=== PATIENT | female | born 1985 | race Caucasian/White ===

== ENCOUNTER 2017-07-10 08:56 | Emergency (ER) | payer MEDICAID ==
[~2017-07-10] VITALS: Ht 160 cm; Wt 73.5 kg
[2017-07-10 08:58] VITALS: Ht 160 cm; Wt 73.5 kg
[2017-07-10 10:21] LABS: BASOPHILS % 0.3 % (0.0-2.0); EOSINOPHILS # 0.1 10^3/ul (0.0-0.5); EOSINOPHILS % 0.5 % (0.0-7.0); HEMATOCRIT 39.3 % (37.0-47.0); HEMOGLOBIN 13.3 g/dl (12.0-16.0); LYMPHOCYTES % 21.2 % (15.0-51.0); MEAN CORPUSCULAR HEMOGLOBIN 29.6 pg (29.0-33.0); MEAN CORPUSCULAR HGB CONC 33.8 g/dl (32.0-37.0); MEAN CORPUSCULAR VOLUME 87.5 fl (82.0-101.0); MONOCYTE # 0.6 10^3/ul (0.3-0.9); NEUTROPHIL # 6.8 10^3/ul (1.6-7.5); NEUTROPHILS % 71.7 % (39.0-77.0); PLATELET COUNT 258 10^3/UL (140-415); RED BLOOD COUNT 4.49 10^6/ul (4.20-5.40); RED CELL DISTRIBUTION WIDTH 13.3 % (11.5-14.5); WHITE BLOOD COUNT 9.5 10^3/ul (4.8-10.8)
[2017-07-10 10:22] LABS: ADD UMIC NO; UR ASCORBIC ACID NEGATIVE (NEGATIVE); UR BILIRUBIN (Dip) NEGATIVE (NEGATIVE); UR BLOOD (Dip) NEGATIVE (NEGATIVE); UR CLARITY CLEAR (CLEAR); UR COLOR YELLOW (YELLOW); UR GLUCOSE (Dip) NEGATIVE (NEGATIVE); UR KETONES (Dip) NEGATIVE (NEGATIVE); UR LEUKOCYTE ESTERASE (Dip) NEGATIVE Leu/ul (NEGATIVE); UR NITRITE (Dip) NEGATIVE (NEGATIVE); UR SPECIFIC GRAVITY (Dip) 1.013 (1.003-1.030); UR TOTAL PROTEIN (Dip) NEGATIVE (NEGATIVE); UR UROBILINOGEN (Dip) NEGATIVE (NEGATIVE)
--- NOTE | 2017-07-10 11:00 | RADRPT ---
AMENDMENT: 07/10/2017 11:00:54 AM Dada Fink M.D Transabdominal images only were obtained. PROCEDURE: US OB. CLINICAL INDICATION: Vaginal bleeding , pelvic pain TECHNIQUE: Transabdominal and transvaginal views of the pelvis are available for review. COMPARISON: No prior studies are available for comparison. FINDINGS: There is a single intrauterine gestation with the crown-rump length measuring 4.4 cm and the gestati onal sac measuring 5.2 cm, corresponding to a gestational age of 11 weeks and 2 days. The heart rate is noted at 163 bpm. Normal Doppler flow is identified in both ovaries. The right ovary measures 2.3 x 1.8 x 1.8 cm. There is a 1.2 cm simple cyst in the right ovary. The left ovary measures 3.0 x 1.4 x 1.5 cm. There is a 1.5 cm hemorrhagic cyst in the left ovary. There is no free fluid. RPTAT: AA IMPRESSION: Single live intrauterine with an estimated gestational age of 11 weeks and 2 days, based o n ultrasound measurements. WES based on ultrasound measurements is 01/27/2018. .Dada Fink MD, MD Date Time Electronically viewed and signed by .Dada Fink MD, on 07/10/2017 11:00 .S/
[2017-07-10] MEDS ORDERED: ACET325T33 PO (11:29)
--- NOTE | 2017-07-10 13:27 | ERD ---
ER Documentation Chief Complaint Date/Time DATE: 07/10/17 TIME: 13:17 Chief Complaint pelvic pain x 3 days (11 weeks ) HPI 31 yr old female complaining of left-sided pelvic pain. Patient is 11 weeks . Last normal menstrual period May 11. A0. Dr. Bradley at [facility]. Denies vaginal bleeding. Denies dysuria. Denies medical problems. Ultrasound at 5 weeks with [facility] and they saw in the uterus. ROS All systems reviewed and are negative except as per history of present illness. Medications Home Meds Active Scripts Acetaminophen* (Tylenol*) 325 Mg Tablet, 1 TAB PO Q6 Y for PAIN AND OR ELEVATED TEMP, #20 TAB Prov:CELESTINO MOON PA-C 07/10/17 PMhx/Soc History of Surgery: No Anesthesia Reaction: No Hx Neurological Disorder: No Hx Respiratory Disorders: No Hx Cardiac Disorders: No Hx Psychiatric Problems: No Hx Miscellaneous Medical Probl: No Hx Alcohol Use: No Hx Substance Use: No Hx Tobacco Use: No Smoking Status: Never smoker Physical Exam Vitals Vital Signs Date Time Temp Pulse Resp B/P Pulse Ox O2 Delivery O2 Flow Rate FiO2 07/10/17 08:58 98.2 80 18 121/68 100 Physical Exam GENERAL: The patient is well-appearing, well-nourished, in no acute distress CHEST: Clear to auscultation bilaterally. There are no rales, wheezes or rhonchi. HEART: Regular rate and rhythm. No murmurs, clicks, rubs or gallops. No S3 or S4. ABDOMEN: Mild tenderness to palpation in lower quadrant. No rebound tenderness. Normoactive bowel sounds. Nondistended. Result Diagram: 07/10/17 1004 Results 24 hrs Laboratory Tests Test 07/10/17 10:04 07/10/17 10:10 White Blood Count 9.510^3/ul Red Blood Count 4.4910^6/ul Hemoglobin 13.3g/dl Hematocrit 39.3% Mean Corpuscular Volume 87.5fl Mean Corpuscular Hemoglobin 29.6pg Mean Corpuscular Hemoglobin Concent 33.8g/dl Red Cell Distribution Width 13.3% Platelet Count 83664^3/UL Mean Platelet Volume 10.0fl Neutrophils % 71.7% Lymphocytes % 21.2% Monocytes % 6.0% Eosinophils % 0.5% Basophils % 0.3% Nucleated Red Blood Cells % 0.0/100WBC Neutrophils # 6.810^3/ul Lymphocytes # 2.010^3/ul Monocytes # 0.610^3/ul Eosinophils # 0.110^3/ul Basophils # 0.010^3/ul Nucleated Red Blood Cells # 0.010^3/ul Beta HCG, Quantitative 62876.0mIU/ml Urine Color YELLOW Urine Clarity CLEAR Urine pH 7.0 Urine Specific Franklin 1.013 Urine Ketones NEGATIVEmg/dL Urine Nitrite NEGATIVEmg/dL Urine Bilirubin NEGATIVEmg/dL Urine Urobilinogen NEGATIVEmg/dL Urine Leukocyte Esterase NEGATIVELeu/ul Urine Hemoglobin NEGATIVEmg/dL Urine Glucose NEGATIVEmg/dL Urine Total Protein NEGATIVEmg/dl Procedures/MDM DIAGNOSTIC IMAGING REPORT Patient: HUSSAIN ADAMES : 1985 Age: 31 Sex: F MR #: [id number] DOS: 07/10/17 0958 Ordering MD: [place] MOON PA-C Location: [facility] Room/Bed: AMENDMENT: 07/10/2017 11:00:54 AM Dada Fink M.D Transabdominal images only were obtained. PROCEDURE: US OB. CLINICAL INDICATION: Vaginal bleeding , pelvic pain TECHNIQUE: Transabdominal and transvaginal views of the pelvis are available for review. COMPARISON: No prior studies are available for comparison. FINDINGS: There is a single intrauterine gestation with the crown-rump length measuring 4.4 cm and the gestational sac measuring 5.2 cm, corresponding to a gestational age of 11 weeks and 2 days. The heart rate is noted at 163 bpm. Normal Doppler flow is identified in both ovaries. The right ovary measures 2.3 x 1.8 x 1.8 cm. There is a 1.2 cm simple cyst in the right ovary. The left ovary measures 3.0 x 1.4 x 1.5 cm. There is a 1.5 cm hemorrhagic cyst in the left ovary. There is no free fluid. RPTAT: AA IMPRESSION: Single live intrauterine with an estimated gestational age of 11 weeks and 2 days, based on ultrasound measurements. WES based on ultrasound measurements is 01/27/2018. MDM: 31-year-old female complaining of the left-sided pelvic pain. I have low suspicion for ectopic as patient's ultrasound is within normal limits. I have low suspicion for urinary tract infection. Patient's urine is within normal limits. Patient is not having vaginal bleeding and Rh+ so no indication for RhoGam. Patient's hemoglobin is stable. Patient is recommended to follow-up with Dr. Bradley to be reevaluated within 1-2 days. Patient is discharged with strict ER precautions. All other questions answered at time of discharge. Patient understood and complied with plan Departure Diagnosis: Primary Impression: Pelvic pain Condition: Stable Patient Instructions: Pelvic Pain In : Unclear (2-3 Trimester) Additional Instructions: FOLLOW UP WITH YOUR PRIMARY CARE PHYSICIAN TOMORROW.Return to this facility if you are not improving as expected. CELESTINO MOON PA-C Jul 10, 2017 13:27
== END 2017-07-10 11:40 | disposition home or self-care (01) ==
LOC: FTE 08:56
DX: O26.891 Other specified pregnancy related conditions, first trimester (principal); R10.2 Pelvic and perineal pain; Z3A.11 11 weeks gestation of pregnancy
CPT/HCPCS: 36415; 76801; 81003; 84702; 85025; 86900; 86901; Z7502

== ENCOUNTER 2017-08-24 12:17 | Emergency (ER) | payer MEDICAID ==
[~2017-08-24] VITALS: Ht 162.6 cm; Wt 75.1 kg
[~2017-08-24 12:17] MED LIST: ACET325T33 PO
[2017-08-24 12:20] VITALS: Ht 162.6 cm; Wt 75.1 kg
[2017-08-24 13:36] LABS: BASOPHILS % 0.4 % (0.0-2.0); EOSINOPHILS % 0.3 % (0.0-7.0); HEMATOCRIT 35.1 % (37.0-47.0); LYMPHOCYTES # 1.5 10^3/ul (0.8-2.9); LYMPHOCYTES % 14.8 % (15.0-51.0); MEAN CORPUSCULAR HEMOGLOBIN 30.2 pg (29.0-33.0); MEAN CORPUSCULAR HGB CONC 34.2 g/dl (32.0-37.0); MEAN CORPUSCULAR VOLUME 88.2 fl (82.0-101.0); MONOCYTE # 0.6 10^3/ul (0.3-0.9); MONOCYTES % 6.3 % (0.0-11.0); NEUTROPHIL # 7.8 10^3/ul (1.6-7.5); NEUTROPHILS % 77.7 % (39.0-77.0); PLATELET COUNT 228 10^3/UL (140-415); RED BLOOD COUNT 3.98 10^6/ul (4.20-5.40); RED CELL DISTRIBUTION WIDTH 12.8 % (11.5-14.5)
[2017-08-24 13:40] LABS: ADD UMIC NO; UR ASCORBIC ACID NEGATIVE (NEGATIVE); UR BILIRUBIN (Dip) NEGATIVE (NEGATIVE); UR BLOOD (Dip) NEGATIVE (NEGATIVE); UR CLARITY CLEAR (CLEAR); UR COLOR YELLOW (YELLOW); UR GLUCOSE (Dip) NEGATIVE (NEGATIVE); UR KETONES (Dip) NEGATIVE (NEGATIVE); UR LEUKOCYTE ESTERASE (Dip) NEGATIVE Leu/ul (NEGATIVE); UR NITRITE (Dip) NEGATIVE (NEGATIVE); UR SPECIFIC GRAVITY (Dip) 1.006 (1.003-1.030); UR TOTAL PROTEIN (Dip) NEGATIVE (NEGATIVE); UR UROBILINOGEN (Dip) NEGATIVE (NEGATIVE)
--- NOTE | 2017-08-24 13:51 | ERD ---
ER Documentation Chief Complaint Chief Complaint Pt with dizziness, nausea and SOB-last night, 17 weeks . (OSMIN ROUSE NP) HPI This is a 32-year-old female presenting to the emergency department for dizziness with headache while since last night. Patient also states she is feeling nauseas with some shortness of breath. States she feels dizzy like the room is spinning. Headache is generalized. Denies this being the worst headache she is ever had. No leg pain or leg swelling. Patient denies vomiting or diarrhea. States she feels nauseous with intermittent shortness of breath. Patient states shortness of breath is worse with lying down. No chest pain, chest pressure or heart palpitations. Patient is a A0. Patient states she is currently 17 weeks . Denies any vaginal bleeding or vaginal discharge. No pelvic pain or abdominal pain. (OSMIN ROUSE NP) ROS All systems reviewed and are negative except as per history of present illness. (OSMIN ROUSE NP) Medications Home Meds Active Scripts Acetaminophen* (Tylenol*) 325 Mg Tablet, 1 TAB PO Q6 Y for PAIN AND OR ELEVATED TEMP, #20 TAB Prov:OSMIN ROUSE NP 08/24/17 Acetaminophen* (Tylenol*) 325 Mg Tablet, 1 TAB PO Q6 Y for PAIN AND OR ELEVATED TEMP, #20 TAB Prov:CELESTINO MOON PA-C 07/10/17 Allergies Allergies: Coded Allergies: No Known Allergy (Unverified , 08/24/17) PMhx/Soc History of Surgery: No Anesthesia Reaction: No Hx Neurological Disorder: No Hx Respiratory Disorders: No Hx Cardiac Disorders: No Hx Psychiatric Problems: No Hx Miscellaneous Medical Probl: No Hx Alcohol Use: No Hx Substance Use: No Hx Tobacco Use: No (OSMIN ROUSE NP) Physical Exam Vitals Vital Signs Date Time Temp Pulse Resp B/P Pulse Ox O2 Delivery O2 Flow Rate FiO2 08/24/17 16:31 98.0 73 17 102/56 98 Room Air 08/24/17 12:20 97.8 103 14 116/66 98 (RORY DOWD MD) Physical Exam Const: No acute distress, alert Head: Atraumatic Eyes: Normal Conjunctiva ENT: Normal External Ears, Nose and Mouth. Neck: Full range of motion..~ No meningismus. Resp: Clear to auscultation bilaterally. No wheezing, rhonchi or crackles. No stridor or labored breathing. No intercostal retractions. Patient is talking in complete sentences. Cardio: Regular rate and rhythm, no murmurs Abd: Soft, non tender, non distended. Normal bowel sounds Skin: No petechiae or rashes Back: No midline or flank tenderness Ext: No cyanosis, or edema Neur: Awake and alert Psych: Normal Mood and Affect (OSMIN ROUSE NP) Result Diagram: 08/24/17 1310 08/24/17 1310 Results 24 hrs Laboratory Tests Test 08/24/17 13:10 08/24/17 13:20 White Blood Count 10.010^3/ul Red Blood Count 3.9810^6/ul Hemoglobin 12.0g/dl Hematocrit 35.1% Mean Corpuscular Volume 88.2fl Mean Corpuscular Hemoglobin 30.2pg Mean Corpuscular Hemoglobin Concent 34.2g/dl Red Cell Distribution Width 12.8% Platelet Count 09461^3/UL Mean Platelet Volume 10.0fl Neutrophils % 77.7% Lymphocytes % 14.8% Monocytes % 6.3% Eosinophils % 0.3% Basophils % 0.4% Nucleated Red Blood Cells % 0.0/100WBC Neutrophils # 7.810^3/ul Lymphocytes # 1.510^3/ul Monocytes # 0.610^3/ul Eosinophils # 0.010^3/ul Basophils # 0.010^3/ul Nucleated Red Blood Cells # 0.010^3/ul Urine Color YELLOW Urine Clarity CLEAR Urine pH 6.0 Urine Specific Edwards 1.006 Urine Ketones NEGATIVEmg/dL Urine Nitrite NEGATIVEmg/dL Urine Bilirubin NEGATIVEmg/dL Urine Urobilinogen NEGATIVEmg/dL Urine Leukocyte Esterase NEGATIVELeu/ul Urine Hemoglobin NEGATIVEmg/dL Urine Glucose NEGATIVEmg/dL Urine Total Protein NEGATIVEmg/dl Sodium Level 138mmol/L Potassium Level 3.5mmol/L Chloride Level 104mmol/L Carbon Dioxide Level 26mmol/L Anion Gap 12 Blood Urea Nitrogen 8mg/dl Creatinine 0.56mg/dl Glucose Level 78mg/dl Calcium Level 9.1mg/dl Total Bilirubin 0.2mg/dl Direct Bilirubin 0.00mg/dl Indirect Bilirubin 0.2mg/dl Aspartate Amino Transf (AST/SGOT) 18IU/L Alanine Aminotransferase (ALT/SGPT) 31IU/L Alkaline Phosphatase 45IU/L Troponin I < 0.012ng/ml Total Protein 7.4g/dl Albumin 3.6g/dl Globulin 3.80g/dl Albumin/Globulin Ratio 0.94 Prothrombin Time 12.3Sec Prothrombin Time Ratio 1.0 INR International Normalized Ratio 0.91 Activated Partial Thromboplast Time 24.7Sec Current Medications Medications (Trade) Dose Ordered Sig/Denita Route PRN Reason Start Time Stop Time Status Last Admin Dose Admin Acetaminophen (Tylenol Tab) 500 mg ONCE STAT PO 08/24/17 15:17 08/24/17 15:18 DC 08/24/17 15:27 (RORY DOWD MD) Procedures/MDM Patient: HUSSAIN ADAMES : 1985 Age: 32 Sex: F MR #: [id number] DOS: 08/24/17 1306 Ordering MD: OSMIN CANTU NP Location: [facility] Room/Bed: PROCEDURE: XR Chest. CLINICAL INDICATION: Shortness of breath. Weakness. TECHNIQUE: Single frontal chest x-ray. COMPARISON: None available. FINDINGS: The cardiomediastinal silhouette is unremarkable. No pneumothorax, pleural effusion or consolidation is seen. No acute osseous abnormality is noted. IMPRESSION: 1. No acute cardiopulmonary abnormality. EKG: As interpreted by myself and Dr. Dowd Rate/Rhythm: Normal sinus rhythm with heart rate 83 bpm QRS, ST, T-waves: No changes consistent w/ acute ischemia Impression: No evidence of ischemia or arrhythmia Patient: HUSSAIN ADAMES : 1985 Age: 32 Sex: F MR #: [id number] DOS: 08/24/17 1352 Ordering MD: OSMIN CANTU NP Location: [facility] Room/Bed: PROCEDURE: US OB. CLINICAL INDICATION: Size and dates. TECHNIQUE: Multiple sonographic images of the pelvis were obtained. Transabdominal imaging only was performed. COMPARISON: 07/10/2017. FINDINGS: The cervix is closed with a length of 4.3 cm. Cardiac activity is present with 131 beats per minute. Presentation is vertex. Measurements were made in order to determine age. The results are as follows: BPD = 17 weeks 6 days HC = 17 weeks 5 days AC = 17 weeks 4 days FL = 70 weeks 0 days Estimated weight is 193 g. The following anatomy were visualized and without abnormality: Urinary bladder, four-chamber heart, left ventricular outflow tract, and diaphragm. The placenta is posterior, with no evidence of previa. Amniotic fluid volume is subjectively within normal limits. IMPRESSION: Single, live intrauterine with estimated age of 17 weeks, 4 days on the basis of this examination. No acute or significant abnormality. Limited survey demonstrates no abnormality. Recommend comprehensive anatomic survey in 3 weeks. MDM: This is a 32-year-old female presenting to emergency department with dizziness and headache since last night. Patient also states she is having some nausea with shortness of breath. Labs and urine ordered. Chest x-ray ordered. CBC shows no significant anemia or infection. CMP shows no significant electrolyte imbalance. Normal liver enzymes. Normal glucose and lipase. Normal creatinine and BUN. UA is negative for infection. Chest x-ray reviewed by radiologist as no acute cardiopulmonary abnormality. Pelvic ultrasound reviewed by radiologist as single, live intrauterine with estimated age of 17 weeks, 4 days. No acute or significant abnormality. EKG shows normal sinus rhythm with heart rate [address] Dowd regarding this patient who also examined patient. We agree that patient is appropriate for outpatient management with urgent follow up with OBGYN and/or PCP. Low suspicion for acute AK, PE, CVA, TIA or other acute abnormality. Patient is appropriate for outpatient management will be given prescription for Tylenol. Instructed patient to follow-up with [employer] COMPUT[facility] [employer]IST in the next 2-3 days for reassessment and additional management. Return to ED for any high fever, chest pain, difficulty breathing, shortness breath, wheezing, vomiting, diarrhea, abdominal pain or any new or worsening symptoms. Patient verbalizes understanding. All questions answered at discharge. Georgian translation used during this encounter. Disclaimer: Inadvertent spelling and grammatical errors are likely due to EHR/ dictation software use and do not reflect on the overall quality of patient care. Also, please note that the electronic time recorded on this note does not necessarily reflect the actual time of the patient encounter. (OSMIN ROUSE NP) I evaluated the patient. Her chief complaint was lightheadedness. She did complain of some dyspnea, but did not have risk factors or findings that were suggestive of pulmonary embolism. A chest x-ray was performed and was unremarkable. EKG was unremarkable. The patient stable vital signs and was well-appearing. She was counseled on return precautions. (RORY DOWD MD) Departure Diagnosis: Primary Impression: Dizziness Additional Impression: Headache Headache type: unspecified Headache chronicity pattern: acute headache Intractability: not intractable Qualified Code: R51 - Acute nonintractable headache, unspecified headache type Condition: Stable OSMIN ROUSE NP Aug 24, 2017 13:51 RORY DOWD MD Aug 24, 2017 19:08
--- NOTE | 2017-08-24 13:54 | RADRPT ---
PROCEDURE: XR Chest. CLINICAL INDICATION: Shortness of breath. Weakness. TECHNIQUE: Single frontal chest x-ray. COMPARISON: None available. FINDINGS: The cardiomediastinal silhouette is unremarkable. No pneumothorax, pleural effusion or consolidation is seen. No acute osseous abnormality is noted. IMPRESSION: 1. No acute cardiopulmonary abnormality. RPTAT: QQ .Lorene Anderson MD, Date Time Electronically viewed and signed by .Lorene Anderson MD, on 08/24/2017 13:54 .N/
[2017-08-24 13:57] LABS: ALANINE AMINOTRANSFERASE 31 IU/L (13-69); ALBUMIN 3.6 g/dl (3.3-4.9); ALBUMIN/GLOBULIN RATIO 0.94; ALKALINE PHOSPHATASE 45 IU/L (42-121); ANION GAP 12 (8-16); ASPARTATE AMINO TRANSFERASE 18 IU/L (15-46); BILIRUBIN,INDIRECT 0.2 mg/dl (0-1.1); BILIRUBIN,TOTAL 0.2 mg/dl (0.2-1.3); BLOOD UREA NITROGEN 8 mg/dl (7-20); CALCIUM 9.1 mg/dl (8.4-10.2); CARBON DIOXIDE 26 mmol/L (21-31); CHLORIDE 104 mmol/L (97-110); CREATININE 0.56 mg/dl (0.44-1.00); GLUCOSE 78 mg/dl (70-220); POTASSIUM 3.5 mmol/L (3.5-5.1); SODIUM 138 mmol/L (135-144); TOTAL PROTEIN 7.4 g/dl (6.1-8.1)
[2017-08-24 14:00] LABS: INR 0.91; PROTIME 12.3 Sec (12.2-14.2)
[2017-08-24 14:01] LABS: PARTIAL THROMBOPLASTIN TIME 24.7 Sec (25.0-35.0)
[2017-08-24 14:09] LABS: TROPONIN-I < 0.012 ng/ml (0.00-0.12)
--- NOTE | 2017-08-24 14:56 | RADRPT ---
PROCEDURE: US OB. CLINICAL INDICATION: Size and dates. TECHNIQUE: Multiple sonographic images of the pelvis were obtained. Transabdominal imaging only w as performed. COMPARISON: 07/10/2017. FINDINGS: The cervix is closed with a length of 4.3 cm. Cardiac activity is present with 131 beats per minute. Presentation is vertex. Measurements were made in order to determine age. The results are as follows: BPD = 17 weeks 6 days HC = 17 weeks 5 days AC = 17 weeks 4 days FL = 70 weeks 0 days Estimated weight is 193 g. The following anatomy were visualized and without abnormality: Urinary bladder, four-chamber heart, left ventricular outflow tract, and diaphragm. The placenta is posterior, with no evidence of previa. Amniotic fluid volume is subjectively within normal limits. IMPRESSION: Single, live intrauterine with estimated age of 17 weeks, 4 days on the basis of thi s examination. No acute or significant abnormality. Limited survey demonstrates no abnormality. Recommend com prehensive anatomic survey in 3 weeks. RPTAT: EE .Venu Canales MD, Date Time Electronically viewed and signed by .Venu Canales MD, on 08/24/2017 15:02 .C/
[2017-08-24] MEDS ORDERED: ACETAMINOPHEN 500 MG TAB PO STA (15:17)
[2017-08-24] MEDS ORDERED: ACET325T33 PO (16:02)
[2017-08-24 16:31] VITALS: BP 102/56; PULSE 73; RESP 17; TEMP 98
== END 2017-08-24 16:32 | disposition home or self-care (01) ==
LOC: FTE 12:17
DX: O99.89 Other specified diseases and conditions complicating pregnancy, childbirth and the puerperium (principal); R42 Dizziness and giddiness; R51 Headache; R06.02 Shortness of breath; Z3A.17 17 weeks gestation of pregnancy
CPT/HCPCS: 36415; 71010; 76805; 80053; 81003; 84484; 85025; 85610; 85730; 87400; 93005; Z7502; Z7610

== ENCOUNTER 2017-11-21 20:25 | Outpatient (CLI) | END 2017-11-21 22:23 | disposition home or self-care (01) ==

== ENCOUNTER 2017-12-15 12:20 | Outpatient (CLI) | END 2017-12-15 14:30 | disposition home or self-care (01) ==

== ENCOUNTER 2017-12-15 14:34 | Emergency (ER) | END 2017-12-15 18:53 | disposition home or self-care (01) ==

== ENCOUNTER 2018-01-04 23:00 | Inpatient (IN) | END 2018-01-11 16:23 | disposition home or self-care (01) | DRG 766 ==

== ENCOUNTER 2018-04-11 14:04 | Emergency (ER) | END 2018-04-11 16:05 | disposition home or self-care (01) ==

== ENCOUNTER 2018-07-29 11:27 | Emergency (ER) | END 2018-07-29 13:34 | disposition home or self-care (01) ==

== ENCOUNTER 2019-01-03 21:40 | Inpatient (IN) | payer MEDICAID ==
[~2019-01-03] VITALS: Ht 162.6 cm; Wt 80.0 kg
[~2019-01-03 21:40] MED LIST changes: -ACET325T33 PO; +CEPH-443 PO; +CIPR500T4 PO; +FERR256T PO; +IBUP-1542 PO; +PREN-6 PO
[2019-01-04] VITALS (23 sets, daily range): BP systolic 99–118; BP diastolic 53–68; PULSE 54–89; RESP 10–58; Ht 162.6 cm; Wt 80.0 kg
[2019-01-04] MEDS ORDERED: morphine 4 MG/ML VIAL IV STA (01:17)
[2019-01-04] MEDS ORDERED: ONDANSETRON 4 MG INJ IV STA (01:17)
--- NOTE | 2019-01-04 01:17 | ERD ---
ER Documentation Chief Complaint Chief Complaint RIGHT PELVIC PAIN SINCE THE AM HPI This is a 33-year-old female presents emergency department with complaints of right-sided abdominal pain that started this morning. Complains of difficulty walking due to pain. No associated with no vomiting. Her last bowel movement was today and it was normal. LMP: 12/20/2018. A0. Denies headache, head injury, loss of consciousness, dizziness, neck pain, neck stiffness, throat pain, difficulty swallowing, difficulty breathing lying flat, shoulder pain, chest pain, back pain, vomiting, constipation, diarrhea, urinary symptoms, or possibility being , loss of bowel and bladder control, trauma, injury, falls, numbness or tingling sensation, calf pain, recent travel, recent major surgery in the last 3 weeks, calf pain, recent long travel, recent exposure to any illness, recent antibiotic use in the last 3 sheila hs, fever, chills, seizures. Past medical history: Surgical history: x4. Social: Denies smoking, use of alcoholic beverages, use of illegal drugs. ROS All systems reviewed and are negative except as per history of present illness. Medications Home Meds Active Scripts Ciprofloxacin Hcl* (Ciprofloxacin Hcl*) 500 Mg Tablet, 500 MG PO BID for 7 Days, TAB Prov:CELESTINO MOON PA-C 07/29/18 Ibuprofen* (Motrin*) 600 Mg Tab, 600 MG PO Q6, #30 TAB Prov:COLTEN ZABALA PA-C 04/11/18 Cephalexin* (Keflex*) 500 Mg Capsule, 500 MG PO QID for 7 Days, CAP Prov:COLTEN ZABALA PA-C 04/11/18 Reported Medications Ferrous Gluconate (Iron) 256 Mg Tablet, 256 MG PO DAILY, TAB 11/21/17 Vits #93-Iron Fum-FA ( Formula) 1 Each Tablet, 1 TAB PO DAILY, TAB 11/21/17 Allergies Allergies: Coded Allergies: No Known Allergy (Unverified , 12/15/17) PMhx/Soc History of Surgery: Yes (c section ) Anesthesia Reaction: No Hx Neurological Disorder: No Hx Respiratory Disorders: No Hx Cardiac Disorders: No Hx Psychiatric Problems: No Hx Miscellaneous Medical Probl: No Hx Alcohol Use: No Hx Substance Use: No Hx Tobacco Use: No Smoking Status: Never smoker Physical Exam Vitals Vital Signs Date Temp Pulse Resp B/P (MAP) Pulse Ox O2 O2 Flow FiO2 Time Delivery Rate 01/03/19 98.9 89 18 118/68 100 22:04 (85) Physical Exam Const: No acute distress Head: Atraumatic Eyes: Normal Conjunctiva ENT: Normal External Ears, Nose and Mouth. Neck: Full range of motion. No meningismus. Resp: Clear to auscultation bilaterally Cardio: Regular rate and rhythm, no murmurs Abd: Soft, non tender, non distended. Normal bowel sounds. Negative Ott sign. Right lower quadrant tenderness to palpation. Right lower quadrant/abdominal rebound tenderness. Has difficulty walking due to pain. Unable to jump due to right lower abdominal pain. No CVA tenderness. Skin: No petechiae or rashes Back: No midline or flank tenderness Ext: No cyanosis, or edema Neur: Awake and alert. No neurological deficits. Psych: Normal Mood and Affect Result Diagram: 01/04/198 01/04/19137 Results 24 hrs Laboratory Tests Test 01/04/19 01:38 01/04/19 01:50 White Blood Count 10.0 10^3/ul Red Blood Count 4.26 10^6/ul Hemoglobin 12.3 g/dl Hematocrit 37.2 % Mean Corpuscular Volume 87.3 fl Mean Corpuscular Hemoglobin 28.9 pg Mean Corpuscular Hemoglobin Concent 33.1 g/dl Red Cell Distribution Width 12.0 % Platelet Count 251 10^3/UL Mean Platelet Volume 11.0 fl Immature Granulocytes % 0.300 % Neutrophils % 60.8 % Lymphocytes % 30.4 % Monocytes % 7.4 % Eosinophils % 0.7 % Basophils % 0.4 % Nucleated Red Blood Cells % 0.0 /100WBC Immature Granulocytes # 0.030 10^3/ul Neutrophils # 6.1 10^3/ul Lymphocytes # 3.0 10^3/ul Monocytes # 0.7 10^3/ul Eosinophils # 0.1 10^3/ul Basophils # 0.0 10^3/ul Nucleated Red Blood Cells # 0.0 10^3/ul Urine Color YELLOW Urine Clarity SLIGHTLY CLOUDY Urine pH 7.0 Urine Specific [place] 1.018 Urine Ketones NEGATIVE mg/dL Urine Nitrite NEGATIVE mg/dL Urine Bilirubin NEGATIVE mg/dL Urine Urobilinogen NEGATIVE mg/dL Urine Leukocyte Esterase NEGATIVE Abad/ul Urine Microscopic RBC 13 /HPF Urine Microscopic WBC 1 /HPF Urine Squamous Epithelial Cells FEW /HPF Urine Mucus FEW /HPF Urine Hemoglobin 1+ mg/dL Urine Glucose NEGATIVE mg/dL Urine Total Protein NEGATIVE mg/dl Sodium Level 143 mmol/L Potassium Level 4.1 mmol/L Chloride Level 106 mmol/L Carbon Dioxide Level 29 mmol/L Anion Gap 8 Blood Urea Nitrogen 12 mg/dl Creatinine 0.56 mg/dl Est Glomerular Filtrat Rate mL/min > 60 mL/min Glucose Level 103 mg/dl Calcium Level 9.9 mg/dl Total Bilirubin 0.4 mg/dl Direct Bilirubin 0.00 mg/dl Indirect Bilirubin 0.4 mg/dl Aspartate Amino Transf (AST/SGOT) 16 IU/L Alanine Aminotransferase (ALT/SGPT) 21 IU/L Alkaline Phosphatase 51 IU/L Total Protein 7.2 g/dl Albumin 4.1 g/dl Globulin 3.10 g/dl Albumin/Globulin Ratio 1.32 Lipase 105 U/L POC Beta HCG, Qualitative NEGATIVE Current Medications Medications Dose Sig/Denita Start Time Status Last (Trade) Ordered Route PRN Stop Time Admin Dose Reason Admin Morphine 4 mg ONCE STAT 01/04/19 DC 01/04/19 Sulfate IV 01:17 01:55 (morphine) 01/04/19 01:20 Ondansetron 4 mg ONCE STAT 01/04/19 DC 01/04/19 HCl (Zofran IV 01:17 01:55 Inj) 01/04/19 01:20 Sodium 1,000 ml @ Q1H ONCE 01/04/19 DC 01/04/19 Chloride 1,000 mls/hr IV 01:30 01:56 01/04/19 02:29 IV Flush 10 ml STK-MED 01/04/19 DC (NS 10 ml) ONCE .ROUTE 03:02 01/04/19 03:03 Sodium 100 ml @ ud STK-MED 01/04/19 DC Chloride ONCE .ROUTE 03:02 01/04/19 03:03 Iohexol 150 ml STK-MED 01/04/19 DC (Omnipaque ONCE .ROUTE 03:02 300mg/ ml) 01/04/19 03:03 Sodium 1,000 ml @ Q20H IV 01/04/19 01/04/19 Chloride 50 mls/hr 06:00 06:41 Piperacillin 100 ml @ ONCE ONCE 01/04/19 DC 01/04/19 Sod/ 200 mls/hr IVPB 06:00 06:41 Tazobactam 01/04/19 06:29 Sod Morphine 4 mg Q4 PRN IV 01/04/19 Sulfate pain 06:00 (morphine) Ondansetron 4 mg Q6 PRN IV 01/04/19 HCl (Zofran nausea/vomiti 06:00 Inj) ng Lactated 1,000 ml @ Q5H ONCE 01/04/19 Ringer's 200 mls/hr IV 07:02 01/04/19 12:01 Ondansetron 4 mg BRIDGE ORDER 01/04/19 HCl (Zofran PRN IV 07:30 Inj) NAUSEA/VOMITI 01/05/19 07:29 NG 650 mg ER BRIDGE 01/04/19 Acetaminophen PRN PO 07:30 (Tylenol .MILD PAIN 01/05/19 07:29 Tab) 1-3 OR TEMP Procedures/MDM Diagnostic tests: POC urine : Negative. Urinalysis: Reviewed. Culture urine: Sent. Blood works: Reviewed. CT of the abdomen and pelvis with IV contrast: 1. Early acute appendicitis. No definite free air or abscess. 2. Hepatomegaly and incompletely characterized 3.4 cm hypodense liver lesion which is not likely a cyst. This could represent a hemangioma or other benign lesion but follow-up MRI with Eovist contrast is suggested. Results were called to Paula Blair at 01/04/2019 5:52:09 AM Treatment: Saline lock. Normal saline IV bolus. Morphine IV. Zofran IV. Zosyn IV. Last oral intake was at 7 PM. My supervising physician, Dr. Senia Quintanilla stated that the radiologist called him for this patient and was informed that this is an early appendicitis. Patient was moved to Main emergency department. Case was discussed with my supervising physician, Dr. Mercy Chaudhari who agreed to continue the care and process the admission. Departure Diagnosis: Primary Impression: Acute abdominal pain in right lower quadrant Additional Impression: Acute appendicitis with localized peritonitis without perforation Appendicitis gangrene presence: without gangrene Appendicitis abscess presence: without abscess Qualified Codes: K35.30 - Acute appendicitis with localized peritonitis, without perforation or gangrene Condition: Serious Comments Supervisory Addendum I evaluated the patient. Differential diagnosis and management options discuss ed. Results reviewed. I agree with the assessment and the plan of care as documented in the PA notes. Please refer to my note. PAULA DOHERTY Jan 04, 2019 01:17 SHELDON CHAUDHARI MD Jan 04, 2019 07:31
[2019-01-04] MEDS ORDERED: SOD CHLORIDE 0.9% 1,000 ML IV ONE (01:30)
[2019-01-04] MEDS ORDERED: SOD CHLORIDE 0.9% 100 ML ONE (03:02)
[2019-01-04] MEDS ORDERED: IOHEXOL 300MG/ML 150 ML BTL ONE (03:02)
[2019-01-04] MEDS ORDERED: SOD CHLORIDE 0.9% 1,000 ML IV SCH ×2 (06:00→07:35)
[2019-01-04] MEDS ORDERED: ONDANSETRON 4 MG INJ IV PRN ×6 (06:00→17:00)
[2019-01-04] MEDS ORDERED: PIPER-TAZO 3.375 GM IV (PMX) 100 ML IVPB ONE (06:00)
[2019-01-04] MEDS: morphine 4 MG/ML VIAL IV PRN ×2 (06:42→08:22)
[2019-01-04] MEDS ORDERED: LIDOCAINE 2% (SDV) 5 ML INJ ONE (07:00)
[2019-01-04] MEDS ORDERED: LACTATED RINGER'S 1,000 ML IV ONE (07:02)
--- NOTE | 2019-01-04 07:25 | EN ---
Date/Time of Note Date/Time of Note DATE: 01/04/19 TIME: 07:10 ER Progress Note 33-year-old female with no significant prior medical history other than a Chiari malformation presents the ED complaining of 1 day history of right lower quadrant pain, anorexia and nausea but no vomiting, diarrhea or constipation. No vaginal discharge, bleeding, dysuria or polyuria. Patient is 4 para 4 last menstrual period 12/20/2018. Past surgical history x4. Medical examination patient is well-appearing in mild distress due to pain. Afebrile with normal vital signs. Lungs are clear. Heart exam is normal. Abdomen is soft with mild right lower quadrant tenderness but no rebound or guarding. Genitourinary exam is deferred. Musculoskeletal exam is unremarkable. Labs: CBC negative for leukocytosis, anemia or thrombocytopenia. Chemistry feels no evidence of electrolyte abnormalities, renal insufficiency or hyperglycemia. LFTs are negative for hyperbilirubinemia transaminitis. Lipase is not elevated. Urinalysis is negative. test is negative. CT scan of the abdomen pelvis reveals a slightly dilated appendix of 9.1 mm with adjacent fat stranding suggestive of early appendicitis. There is no free air or abscess. There is also a small fat-containing umbilical hernia and hepatomegaly with a 3.4 cm hypodense liver lesion which is not likely a cyst. Possible hemangioma or other benign lesion and further evaluation with MRI is suggested. Patient presents with right lower quadrant pain, tenderness and CT findings consistent with appendicitis without perforation. Patient was treated with intravenous hydration, antiemetics and intravenous opiates for pain. Zosyn 3.375 g IV piggyback was administered. Last p.o. intake was at 7 PM last night and patient is maintained n.p.o. Surgery consulted. Admit to [facility] for further evaluation and management. CALLS/CONSULTATIONS: Time: 06:38. Dr Serg Montiel CARE TRANSFERRED: Time: 07:14. SHELDON Del Angel MD Jan 04, 2019 07:24
[2019-01-04] MEDS ORDERED: ACETAMINOPHEN 325 MG TAB PO PRN ×3 (07:30→17:00)
[2019-01-04] MEDS ORDERED: NACL 0.9% 3 ML SYG IV SCH (08:00)
[2019-01-04] MEDS ORDERED: morphine 2 MG INJ IV PRN (08:00)
[2019-01-04] MEDS ORDERED: DOCUSATE SODIUM 100 MG CAP PO PRN (08:00)
[2019-01-04] MEDS ORDERED: BISACODYL (EC) 5 MG TAB PO PRN (08:00)
--- NOTE | 2019-01-04 12:02 | HP ---
Date/Time of Note Date/Time of Note DATE: 01/04/19 TIME: 11:59 Assessment/Plan VTE Prophylaxis SCD applied (from Nsg): Yes Pharmacological prophylaxis: NA/contraindicated Pharm contraindication: low risk/ambulating Lines/Catheters IV Catheter Type (from Nrsg): Saline Lock Assessment/Plan Hospital Course SUBJECTIVE: Lying in bed comfortably. Having pain 7 out of 10 on right lower quadrant abdomen. OBJECTIVE: Vital signs-see below PHYSICAL EXAM: Constitutional: Well-developed, adequately built, lying in bed comfortably. Psych: nl mood/affect, no complaints Head: atraumatic, normocephalic Eyes: nl conjunctiva, nl sclera ENMT: mucosa pink and moist, nl external ears & nose Neck: non-tender, supple Respiratory: clear to auscultation, normal air movement Cardiovascular: nl pulses, regular rate and rhythm Gastrointestinal: +Tenderness RLQ. No rebound. Abdomen soft, bowel sounds active in all 4 quadrants. Musculoskeletal/extremities: nl extremities to inspection, motor strength equal bilaterally, no focal deficit. Normal pulses,no cyanosis, no edema. Neurological: Alert oriented 3,nl speech, nl strength Skin: nl turgor ASSESSMENT/PLAN: 33-year-old obese female with no significant past medical history, here with sudden onset of right lower quadrant abdominal pain, found to have acute appendicitis. 1. Acute early appendicitis. -Keep n.p.o. Continue IV fluids, IV antibiotics, PRN pain meds. -Follow-up surgery recommendations. 2. Obesity with BMI 30.3. -We will obtain A1c, lipid panel with a.m. labs. DVT prophylaxis: SCDs PUD prophylaxis: Not indicated CODE STATUS: Full code Diet: N.p.o. until cleared from surgery standpoint. Rest of the management depend on hospital course. Approximately 60 m spent on this history and physical. Patient was seen in collaboration with Result Diagram: 01/04/1913701/04/19137 Results 24hrs Laboratory Tests Test 01/04/19 01:38 01/04/19 01:50 White Blood Count 10.0 # Red Blood Count 4.26 # Hemoglobin 12.3 # Hematocrit 37.2 # Mean Corpuscular Volume 87.3 Mean Corpuscular Hemoglobin 28.9 L Mean Corpuscular Hemoglobin Concent 33.1 Red Cell Distribution Width 12.0 Platelet Count 251 # Mean Platelet Volume 11.0 H Immature Granulocytes % 0.300 Neutrophils % 60.8 Lymphocytes % 30.4 Monocytes % 7.4 Eosinophils % 0.7 Basophils % 0.4 Nucleated Red Blood Cells % 0.0 Immature Granulocytes # 0.030 Neutrophils # 6.1 Lymphocytes # 3.0 H Monocytes # 0.7 Eosinophils # 0.1 Basophils # 0.0 Nucleated Red Blood Cells # 0.0 Urine Color YELLOW Urine Clarity SLIGHTLY CLOUDY A Urine pH 7.0 Urine Specific [place] 1.018 Urine Ketones NEGATIVE Urine Nitrite NEGATIVE Urine Bilirubin NEGATIVE Urine Urobilinogen NEGATIVE Urine Leukocyte Esterase NEGATIVE Urine Microscopic RBC 13 H Urine Microscopic WBC 1 Urine Squamous Epithelial Cells FEW Urine Mucus FEW A Urine Hemoglobin 1+ H Urine Glucose NEGATIVE Urine Total Protein NEGATIVE Sodium Level 143 Potassium Level 4.1 Chloride Level 106 Carbon Dioxide Level 29 Anion Gap 8 Blood Urea Nitrogen 12 Creatinine 0.56 Est Glomerular Filtrat Rate mL/min > 60 Glucose Level 103 Calcium Level 9.9 Total Bilirubin 0.4 Direct Bilirubin 0.00 Indirect Bilirubin 0.4 Aspartate Amino Transf (AST/SGOT) 16 Alanine Aminotransferase (ALT/SGPT) 21 Alkaline Phosphatase 51 Total Protein 7.2 Albumin 4.1 Globulin 3.10 Albumin/Globulin Ratio 1.32 Lipase 105 POC Beta HCG, Qualitative NEGATIVE HPI/ROS Admit Date/Time Admit Date/Time Jan 04, 2019 at 07:25 Hx of Present Illness Is a 33-year-old female with no significant past medical history, came to the emergency room with sudden onset of right lower quadrant abdominal pain started yesterday. Patient denied any fever, chills, diarrhea, nausea, vomiting, melena, hematochezia. She also denied chest pain, dizziness, shortness of breath, palpitation, loss of consciousness, vision changes, speech difficulties or others. In the emergency room, initial CBC, BMP grossly unremarkable. Urine analysis negative for any infection. A CT abdomen and pelvis was concerning for early acute appendicitis. There was also evidence of hepatomegaly with 3.4 cm hypodense liver lesion. Patient was admitted for acute appendicitis based on clinical symptoms and imaging findings. She was given Zosyn in the emergency room and a surgery consult was called from the emergency room. ROS A 12 point review of system was assessed and is negative other than what is mentioned in the HPI. PMH/Family/Social Past Medical History See HPI Medications Current Medications Morphine Sulfate (morphine) 4 mg Q4 PRN IV pain Last administered on 01/04/19at 08:22; Admin Dose 4 MG; Start 01/04/19 at 06:00 Lactated Ringer's 1,000 ml @ 200 mls/hr Q5H ONCE IV Last administered on 01/04/19at 08:09; Admin Dose 200 MLS/HR; Start 01/04/19 at 07:02; Stop 01/04/19 at 12:01 Ondansetron HCl (Zofran Inj) 4 mg BRIDGE ORDER PRN IV NAUSEA/VOMITING Last administered on 01/04/19at 08:22; Admin Dose 4 MG; Start 01/04/19 at 07:30; Stop 01/05/19 at 07:29 Acetaminophen (Tylenol Tab) 650 mg ER BRIDGE PRN PO .MILD PAIN 1-3 OR TEMP; Start 01/04/19 at 07:30; Stop 01/05/19 at 07:29 Ondansetron HCl (Zofran Inj) 4 mg Q4H PRN IV nausea/vomiting; Start 01/04/19 at 10:00 Sodium Chloride 1,000 ml @ 80 mls/hr [id number] IV ; Start 01/04/19 at 07:35 IV Flush (NS 3 ml) 3 ml PER PROTOCOL IV ; Start 01/04/19 at 08:00 Acetaminophen (Tylenol Tab) 650 mg Q6H PRN PO .PAIN 1-3 OR TEMP; Start 01/04/19 at 08:00 Morphine Sulfate (morphine) 2 mg Q4H PRN IV .SEVERE PAIN 7-10; Start 01/04/19 at 08:00 Docusate Sodium (Colace) 100 mg Q12H PRN PO .CONSTIPATION; Start 01/04/19 at 08:00 Bisacodyl (Dulcolax) 5 mg DAILY PRN PO .CONSTIPATION; Start 01/04/19 at 08:00 Piperacillin Sod/ Tazobactam Sod 100 ml @ 200 mls/hr Q6 IVPB ; Start 01/04/19 at 12:00 Coded Allergies: No Known Allergy (Unverified , 01/04/19) Past Surgical History Noncontributory Social History Denied history of alcohol, smoking or illicit drug use. Smoking Status: Never smoker Exam/Review of Systems Vital Signs Vitals Vital Signs Date Temp Pulse Resp B/P (MAP) Pulse Ox O2 O2 Flow FiO2 Time Delivery Rate 01/04/19 99.0 58 15 100/62 100 Room Air 08:21 (75) Intake and Output 01/03/19 01/03/19 01/04/19 1515:00 23:00 07:00 IntakeIntake Total 1000 ml BalanceBalance 1000 ml TRAVIS FULLER NP Jan 04, 2019 12:01
[2019-01-04] MEDS: PIPER-TAZO 3.375 GM IV (PMX) 100 ML IVPB SCH ×3 (12:08→23:53)
[2019-01-04] MEDS ORDERED: BUPIVACAINE 0.5%/EPI (SDV) 30 ML INJ ONE (15:06)
--- NOTE | 2019-01-04 15:27 | CONS ---
Assessment/Plan Assessment/Plan Hospital Course (Demo Recall) Patient underwent a CT scan that showed early acute appendicitis. White blood count was 10,000. Surgical consultation was called. Problems: (1) Acute appendicitis with localized peritonitis without perforation Status: Acute Qualifiers: Qualified Codes: K35.30 - Acute appendicitis with localized peritonitis, without perforation or gangrene (2) Acute abdominal pain in right lower quadrant Status: Acute Assessment/Plan (Daily) Acute appendicitis. Patient will benefit from laparoscopic appendectomy, we discussed risk and benefits we discussed possible complications. We discussed bleeding infection anesthesia complications injury to other organs. Patient understood risk and benefits wished to proceed. Consultation Date/Type/Reason Admit Date/Time Jan 04, 2019 at 07:25 Date of Consultation: Jan 04, 2019 Type of Consult Surgical Reason for Consultation Right lower quadrant pain Date/Time of Note DATE: 01/04/19 TIME: 15:23 Hx of Present Illness This is a 33-year-old female presents emergency department with complaints of right-sided abdominal pain that started this morning. Complains of difficulty walking due to pain. No associated with no vomiting. Her last bowel movement was today and it was normal. LMP: 12/20/2018. A0. Denies headache, head injury, loss of consciousness, dizziness, neck pain, neck stiffness, throat pain, difficulty swallowing, difficulty breathing lying flat, shoulder pain, chest pain, back pain, vomiting, constipation, diarrhea, urinary symptoms, or possibility being , loss of bowel and bladder control, trauma, injury, falls, numbness or tingling sensation, calf pain, recent travel, recent major surgery in the last 3 weeks, calf pain, recent long travel, recent exposure to any illness, recent antibiotic use in the last 3 months, fever, chills, seizures. Constitutional: no complaints, improved Eyes: no complaints ENT: no complaints Respiratory: no complaints Cardiovascular: no complaints Gastrointestinal: pain, decreased appetite Genitourinary: no complaints Musculoskeletal: no complaints Skin: no complaints Neurologic: headache Endocrine: no complaints Lymphatic: no complaints Psychological: no complaints, nl mood/affect Immunologic: no complaints Past Medical History Medical History: other (Chiari malformation) Home Meds Discontinued Reported Medications Ferrous Gluconate (Iron) 256 Mg Tablet, 256 MG PO DAILY, TAB 11/21/17 Vits #93-Iron Fum-FA ( Formula) 1 Each Tablet, 1 TAB PO DAILY, TAB 11/21/17 Discontinued Scripts Ciprofloxacin Hcl* (Ciprofloxacin Hcl*) 500 Mg Tablet, 500 MG PO BID for 7 Days, TAB Prov:CELESTINO MOON PA-C 07/29/18 Ibuprofen* (Motrin*) 600 Mg Tab, 600 MG PO Q6, #30 TAB Prov:COLTEN ZABALA PA-C 04/11/18 Cephalexin* (Keflex*) 500 Mg Capsule, 500 MG PO QID for 7 Days, CAP Prov:COLTEN ZABALA PA-C 04/11/18 Medications Current Medications Morphine Sulfate (morphine) 4 mg Q4 PRN IV pain Last administered on 01/04/19at 08:22; Admin Dose 4 MG; Start 01/04/19 at 06:00 Ondansetron HCl (Zofran Inj) 4 mg BRIDGE ORDER PRN IV NAUSEA/VOMITING Last administered on 01/04/19at 08:22; Admin Dose 4 MG; Start 01/04/19 at 07:30; Stop 01/05/19 at 07:29 Acetaminophen (Tylenol Tab) 650 mg ER BRIDGE PRN PO .MILD PAIN 1-3 OR TEMP; Start 01/04/19 at 07:30; Stop 01/05/19 at 07:29 Ondansetron HCl (Zofran Inj) 4 mg Q4H PRN IV nausea/vomiting; Start 01/04/19 at 10:00 Sodium Chloride 1,000 ml @ 80 mls/hr [id number] IV Last administered on 01/04/19at 12:15; Admin Dose 80 MLS/HR; Start 01/04/19 at 07:35 IV Flush (NS 3 ml) 3 ml PER PROTOCOL IV ; Start 01/04/19 at 08:00 Acetaminophen (Tylenol Tab) 650 mg Q6H PRN PO .PAIN 1-3 OR TEMP; Start 01/04/19 at 08:00 Morphine Sulfate (morphine) 2 mg Q4H PRN IV .SEVERE PAIN 7-10; Start 01/04/19 at 08:00 Docusate Sodium (Colace) 100 mg Q12H PRN PO .CONSTIPATION; Start 01/04/19 at 08:00 Bisacodyl (Dulcolax) 5 mg DAILY PRN PO .CONSTIPATION; Start 01/04/19 at 08:00 Piperacillin Sod/ Tazobactam Sod 100 ml @ 200 mls/hr Q6 IVPB Last administered on 01/04/19at 12:08; Admin Dose 200 MLS/HR; Start 01/04/19 at 12:00 Allergies: Coded Allergies: No Known Allergy (Unverified , 01/04/19) Past Surgical History Past Surgical Hx: other () Family History Significant Family History: no pertinent family hx Social History Smoking Status: Never smoker Exam/Review of Systems Exam Vitals Vital Signs Date Temp Pulse Resp B/P (MAP) Pulse Ox O2 O2 Flow FiO2 Time Delivery Rate 01/04/19 99.0 58 15 100/62 100 Room Air 08:21 (75) Intake and Output 01/03/19 01/03/19 01/04/19 1515:00 23:00 07:00 IntakeIntake Total 1000 ml BalanceBalance 1000 ml Constitutional: alert, oriented, well developed Psych: no complaints, nl mood/affect Head: normocephalic, atraumatic Eyes: nl conjunctiva, EOMI, nl lids, nl sclera, PERRL ENMT: nl external ears & nose, nl lips & teeth, nl nasal mucosa & septum Neck: supple, non-tender Respiratory: clear to auscultation, normal air movement Cardiovascular: regular rate and rhythm, nl pulses Gastrointestinal: soft, nl liver, spleen, other (The abdomen is tender in the right lower quadrant with mild rebound. There is a low abdomen midline scar without evidence of incisional hernia. There is a small umbilical hernia.) Musculoskeletal: nl extremities to inspection, nl gait and stance Extremities: normal pulses Neurological: PARCEL CARRIER II-XII intact, nl mental status, nl speech, nl strength Skin: nl turgor; No rash or lesions Lymph: nl lymph nodes Results Result Diagram: 01/04/19 0138 01/04/19 0138 Results 24hrs Laboratory Tests Test 01/04/19 01:38 01/04/19 01:50 White Blood Count 10.0 # Red Blood Count 4.26 # Hemoglobin 12.3 # Hematocrit 37.2 # Mean Corpuscular Volume 87.3 Mean Corpuscular Hemoglobin 28.9 L Mean Corpuscular Hemoglobin Concent 33.1 Red Cell Distribution Width 12.0 Platelet Count 251 # Mean Platelet Volume 11.0 H Immature Granulocytes % 0.300 Neutrophils % 60.8 Lymphocytes % 30.4 Monocytes % 7.4 Eosinophils % 0.7 Basophils % 0.4 Nucleated Red Blood Cells % 0.0 Immature Granulocytes # 0.030 Neutrophils # 6.1 Lymphocytes # 3.0 H Monocytes # 0.7 Eosinophils # 0.1 Basophils # 0.0 Nucleated Red Blood Cells # 0.0 Urine Color YELLOW Urine Clarity SLIGHTLY CLOUDY A Urine pH 7.0 Urine Specific [place] 1.018 Urine Ketones NEGATIVE Urine Nitrite NEGATIVE Urine Bilirubin NEGATIVE Urine Urobilinogen NEGATIVE Urine Leukocyte Esterase NEGATIVE Urine Microscopic RBC 13 H Urine Microscopic WBC 1 Urine Squamous Epithelial Cells FEW Urine Mucus FEW A Urine Hemoglobin 1+ H Urine Glucose NEGATIVE Urine Total Protein NEGATIVE Sodium Level 143 Potassium Level 4.1 Chloride Level 106 Carbon Dioxide Level 29 Anion Gap 8 Blood Urea Nitrogen 12 Creatinine 0.56 Est Glomerular Filtrat Rate mL/min > 60 Glucose Level 103 Calcium Level 9.9 Total Bilirubin 0.4 Direct Bilirubin 0.00 Indirect Bilirubin 0.4 Aspartate Amino Transf (AST/SGOT) 16 Alanine Aminotransferase (ALT/SGPT) 21 Alkaline Phosphatase 51 Total Protein 7.2 Albumin 4.1 Globulin 3.10 Albumin/Globulin Ratio 1.32 Lipase 105 POC Beta HCG, Qualitative NEGATIVE Medications Medication Current Medications Morphine Sulfate (morphine) 4 mg Q4 PRN IV pain Last administered on 01/04/19at 08:22; Admin Dose 4 MG; Start 01/04/19 at 06:00 Ondansetron HCl (Zofran Inj) 4 mg BRIDGE ORDER PRN IV NAUSEA/VOMITING Last administered on 01/04/19at 08:22; Admin Dose 4 MG; Start 01/04/19 at 07:30; Stop 01/05/19 at 07:29 Acetaminophen (Tylenol Tab) 650 mg ER BRIDGE PRN PO .MILD PAIN 1-3 OR TEMP; Start 01/04/19 at 07:30; Stop 01/05/19 at 07:29 Ondansetron HCl (Zofran Inj) 4 mg Q4H PRN IV nausea/vomiting; Start 01/04/19 at 10:00 Sodium Chloride 1,000 ml @ 80 mls/hr [id number] IV Last administered on 01/04/19at 12:15; Admin Dose 80 MLS/HR; Start 01/04/19 at 07:35 IV Flush (NS 3 ml) 3 ml PER PROTOCOL IV ; Start 01/04/19 at 08:00 Acetaminophen (Tylenol Tab) 650 mg Q6H PRN PO .PAIN 1-3 OR TEMP; Start 01/04/19 at 08:00 Morphine Sulfate (morphine) 2 mg Q4H PRN IV .SEVERE PAIN 7-10; Start 01/04/19 at 08:00 Docusate Sodium (Colace) 100 mg Q12H PRN PO .CONSTIPATION; Start 01/04/19 at 08:00 Bisacodyl (Dulcolax) 5 mg DAILY PRN PO .CONSTIPATION; Start 01/04/19 at 08:00 Piperacillin Sod/ Tazobactam Sod 100 ml @ 200 mls/hr Q6 IVPB Last administered on 01/04/19at 12:08; Admin Dose 200 MLS/HR; Start 01/04/19 at 12:00 BRE LITTLE MD Jan 04, 2019 15:27
--- NOTE | 2019-01-04 15:34 | PREAC ---
Date/Time of Note Date/Time of Note DATE: 01/04/19 TIME: 15:33 Anesthesia Eval and Record Evaluation Time Pre-Procedure Interview DATE: 01/04/19 TIME: 15:33 Age 33 Sex female NPO: 8 hrs Preoperative diagnosis appendicitis Planned procedure lap appy Past Medical History Past Medical History: Includes Neuro: Other (arnold chiari malformation, no issues.) GI: Obesity Surgery & Anesthesia Issues No known issue Meds Anticoagulation: No Beta Terri within 24 hr: No Reason Beta Terri not given: Pt. not on B-Terri Discontinued Reported Medications Ferrous Gluconate (Iron) 256 Mg Tablet, 256 MG PO DAILY, TAB 11/21/17 Vits #93-Iron Fum-FA ( Formula) 1 Each Tablet, 1 TAB PO DAILY, TAB 11/21/17 Discontinued Scripts Ciprofloxacin Hcl* (Ciprofloxacin Hcl*) 500 Mg Tablet, 500 MG PO BID for 7 Days, TAB Prov:CELESTINO MOON PA-C 07/29/18 Ibuprofen* (Motrin*) 600 Mg Tab, 600 MG PO Q6, #30 TAB Prov:COLTEN ZABALA PA-C 04/11/18 Cephalexin* (Keflex*) 500 Mg Capsule, 500 MG PO QID for 7 Days, CAP Prov:COLTEN ZABALA PA-C 04/11/18 Current Medications Morphine Sulfate (morphine) 4 mg Q4 PRN IV pain Last administered on 01/04/19at 08:22; Admin Dose 4 MG; Start 01/04/19 at 06:00 Ondansetron HCl (Zofran Inj) 4 mg BRIDGE ORDER PRN IV NAUSEA/VOMITING Last administered on 01/04/19at 08:22; Admin Dose 4 MG; Start 01/04/19 at 07:30; Stop 01/05/19 at 07:29 Acetaminophen (Tylenol Tab) 650 mg ER BRIDGE PRN PO .MILD PAIN 1-3 OR TEMP; Start 01/04/19 at 07:30; Stop 01/05/19 at 07:29 Ondansetron HCl (Zofran Inj) 4 mg Q4H PRN IV nausea/vomiting; Start 01/04/19 at 10:00 Sodium Chloride 1,000 ml @ 80 mls/hr [id number] IV Last administered on 01/04/19at 12:15; Admin Dose 80 MLS/HR; Start 01/04/19 at 07:35 IV Flush (NS 3 ml) 3 ml PER PROTOCOL IV ; Start 01/04/19 at 08:00 Acetaminophen (Tylenol Tab) 650 mg Q6H PRN PO .PAIN 1-3 OR TEMP; Start 01/04/19 at 08:00 Morphine Sulfate (morphine) 2 mg Q4H PRN IV .SEVERE PAIN 7-10; Start 01/04/19 at 08:00 Docusate Sodium (Colace) 100 mg Q12H PRN PO .CONSTIPATION; Start 01/04/19 at 08:00 Bisacodyl (Dulcolax) 5 mg DAILY PRN PO .CONSTIPATION; Start 01/04/19 at 08:00 Piperacillin Sod/ Tazobactam Sod 100 ml @ 200 mls/hr Q6 IVPB Last administered on 01/04/19at 12:08; Admin Dose 200 MLS/HR; Start 01/04/19 at 12:00 Meds reviewed: Yes Allergies Coded Allergies: No Known Allergy (Unverified , 01/04/19) Allergies Reviewed: Yes Labs/Studies Labs Reviewed: Reviewed by anesthesiologist Result Diagram: 01/04/198 01/04/19137 Laboratory Tests 01/04/19 01:38 test: Negative Pre-procedure Exam Last vitals Vital Signs Date Temp Pulse Resp B/P (MAP) Pulse Ox O2 O2 Flow FiO2 Time Delivery Rate 01/04/19 98.2 72 19 118/62 96 14:45 (80) 01/04/19 Room Air 08:21 Airway: Adequate mouth opening, Adequate thyromental dist Mallampati: Mallampati II Teeth: Normal Lung: Normal Heart: Normal ASA Physical Status ASA physical status: 2 Emergency: None Planned Anesthetic General/MAC: ETT Nerve block: TAP (bilateral) Pre-operative Attestations Prior to commencing anesthesia and surgery, the patient was re-evaluated, there was verification of: *The patient's identity *The results of appropriate recent lab work and preoperative vital signs *The above evaluation not changing prior to induction *Anesthetic plan, risk benefits, alternative and complications discussed with patient/family; questions answered; patient/family understands, accepts and wishes to proceed. LASHAY BRAXTON Jan 04, 2019 15:34
[2019-01-04] MEDS ORDERED: ROPIVACAINE 0.5 % 30 ML VIAL ONE (15:37)
[2019-01-04] MEDS ORDERED: FENTAnyl 50 MCG/ML VIAL ONE (15:37)
[2019-01-04] MEDS ORDERED: HYDROmorphONE 1 MG/5 ML IV SYRINGE IV PRN ×3 (16:00)
[2019-01-04] MEDS ORDERED: MEPERIDINE 25 MG INJ IV PRN (16:00)
[2019-01-04] MEDS ORDERED: FENTAnyl 50 MCG/ML VIAL IV PRN ×2 (16:00)
[2019-01-04] MEDS ORDERED: DIPHENHYDRAMINE 50 MG INJ IV PRN ×2 (16:00→17:00)
[2019-01-04] MEDS ORDERED: METOCLOPRAMIDE 10 MG INJ IV PRN (16:00)
[2019-01-04] MEDS ORDERED: ALBUTEROL 0.083% (NEB) 2.5 MG/3 ML AMP HHN PRN (16:00)
[2019-01-04] MEDS ORDERED: CEFAZOLIN 1 GM INJ ONE (16:07)
[2019-01-04] MEDS ORDERED: PROPOFOL 20 ML ONE (16:07)
[2019-01-04] MEDS ORDERED: SUCCINYLCHOLINE CHLORIDE 100 MG/5 ML SYG IV ONE (16:07)
[2019-01-04] MEDS ORDERED: ROCURONIUM 50 MG INJ ONE (16:07)
[2019-01-04] MEDS ORDERED: NEOSTIGMINE 10 MG INJ ONE (16:07)
[2019-01-04] MEDS ORDERED: GLYCOPYRROLATE 0.4 MG INJ ONE (16:07)
--- NOTE | 2019-01-04 16:35 | OPR ---
Date/Time of Note Date/Time of Note DATE: 01/04/19 TIME: 16:29 Operative Report Procedure Date: Jan 04, 2019 Preoperative Diagnosis Acute appendicitis Postoperative Diagnosis Acute appendicitis Operation/Procedure Performed Laparoscopic appendectomy Surgeon see signature line Retail Advertising Executive None Anesthesia Type: general Anesthesiologist: LASHAY BRAXTON Estimated Blood Loss: minimal Transfusion none Specimen Appendix Grafts/Implants none Complications none Pt Condition Post Procedure: stable Procedure Description Patient was identified brought to the operating room positioned supine. General endotracheal anesthesia was induced. The abdomen was prepped and draped usual sterile fashion. Previously tap block was performed by anesthesiologist. Skin incision was performed at the umbilicus and Veress needle was placed to insufflate the abdomen. Abdomen was insufflated with CO2 up to 15 mmHg. Th the same small incision 5 mm trocar was placed. A 5 mm 30 degree scope was used. 2 additional trochars were placed under direct vision. 12 mm trocar scar at the supra pubic bone positioned, 5 mm trocar midway between the pubis and the umbilicus. The appendix was dissected off the omentum. The window was created that the mesoappendix just next to the base. Appendix was divided using 35 mm vascular cutter. Mesentery was divided using 35 mm white vascular cartridge using powered endostapler. The appendix was placed in a specimen bag and removed through the 12 mm trocar site. All wounds were irrigated and closed in 2 layers using 0 Vicryl to the subcutaneous and fascia and 3-0 Monocryl for the skin. Patient tolerated procedure well extubated transferred to recovery room. Instrument sponge counts were correct x2 BRE LITTLE MD Jan 04, 2019 16:35
[2019-01-04] MEDS ORDERED: HYDROCODONE/APAP (5/325) TAB PO PRN (17:00)
[2019-01-04] MEDS ORDERED: HYDROmorphONE 0.5 MG/0.5 ML SYG IV PRN (17:00)
[2019-01-04] MEDS ORDERED: IBUPROFEN 600 MG TAB PO PRN (17:00)
[2019-01-04] MEDS ORDERED: KETOROLAC 30 MG INJ IV PRN (17:00)
[2019-01-04] MEDS: D5W-0.45 NACL + KCL 20 MEQ 1,000 ML IV SCH (18:15)
--- NOTE | 2019-01-04 19:05 | PAC ---
Date/Time of Note Date/Time of Note DATE: 01/04/19 TIME: 19:05 Post-Anesthesia Notes Post-Anesthesia Note Last documented vital signs Vital Signs Date Temp Pulse Resp B/P (MAP) Pulse Ox O2 O2 Flow FiO2 Time Delivery Rate 01/04/19 60 10 107/58 96 Room Air 17:55 (74) 01/04/19 98.2 16:35 Activity: WNL Respiratory function: WNL Cardiovascular function: WNL Mental status: Baseline Pain reasonably controlled: Yes Hydration appropriate: Yes Nausea/Vomiting absent: Yes LASHAY BRAXTON Jan 04, 2019 19:05
[2019-01-05] MEDS: morphine 4 MG/ML VIAL IV PRN
[2019-01-05 00:10] VITALS: BP 100/56; PULSE 77; RESP 17
[2019-01-05] MEDS: D5W-0.45 NACL + KCL 20 MEQ 1,000 ML IV SCH ×2 (02:35→05:26)
[2019-01-05] MEDS: PIPER-TAZO 3.375 GM IV (PMX) 100 ML IVPB SCH ×3 (05:26→18:00)
[2019-01-05 08:02] VITALS: BP 109/53; PULSE 87; RESP 18
--- NOTE | 2019-01-05 12:00 | PN ---
Date/Time of Note Date/Time of Note DATE: 01/05/19 TIME: 11:57 Assessment/Plan VTE Prophylaxis Risk score (from Ns)>0 risk: 2 SCD applied (from [facility]): Yes Pharmacological prophylaxis: NA/contraindicated Pharm contraindication: low risk/ambulating Lines/Catheters IV Catheter Type (from [facility]): Peripheral IV Assessment/Plan Hospital Course SUBJECTIVE: That is post laparoscopic appendectomy 01/04/2019. Complaining of abdominal pain, poor appetite. She has not passed flatus yet or had bowel movement. No fevers. OBJECTIVE: Vital signs-see below PHYSICAL EXAM: Constitutional: Well-developed, adequately built, lying in bed comfortably. Psych: nl mood/affect, no complaints Head: atraumatic, normocephalic Eyes: nl conjunctiva, nl sclera ENMT: mucosa pink and moist, nl external ears & nose Neck: non-tender, supple Respiratory: clear to auscultation, normal air movement Cardiovascular: nl pulses, regular rate and rhythm Gastrointestinal: +Tenderness RLQ.surgical site c/d/i.mild abd distention. No rebound. no bowel sounds appreciated. Musculoskeletal/extremities: nl extremities to inspection, motor strength equal bilaterally, no focal deficit. Normal pulses,no cyanosis, no edema. Neurological: Alert oriented 3,nl speech, nl strength Skin: nl turgor ASSESSMENT/PLAN: 33-year-old obese female with no significant past medical history, here with sudden onset of right lower quadrant abdominal pain, found to have acute appendicitis. 1. Acute appendicitis. -Status post laparoscopic appendectomy 01/04/2019. -POD#1=> having pain, slight abdominal distention, bowel function has not returned back it. -Diet as tolerated. -Continue antimicrobials and as needed pain medicines. -Follow-up surgery recommendations. 2. Obesity with BMI 30.3. -Weight reduction advised DVT prophylaxis: SCDs PUD prophylaxis: Not indicated CODE STATUS: Full code Diet: Has been started on a regular diet Disposition: Patient POD #1, having pain on surgical site and generalized abdominal areas. She has not had passed flatus or had bowel movement yet. She is also having pain on surgical site. At this time, recommend another 24 hours of observation until her bowel function returns and DC planning once cleared from surgery standpoint. Patient was seen in collaboration with Result Diagram: 01/05/19 0426 01/05/19 0426 Results 24hrs Laboratory Tests Test 01/05/19 04:26 White Blood Count 7.2 # Red Blood Count 3.96 L Hemoglobin 11.4 L Hematocrit 34.7 L Mean Corpuscular Volume 87.6 Mean Corpuscular Hemoglobin 28.8 L Mean Corpuscular Hemoglobin Concent 32.9 Red Cell Distribution Width 12.1 Platelet Count 230 Mean Platelet Volume 11.0 H Immature Granulocytes % 0.700 H Neutrophils % 61.6 Lymphocytes % 30.3 Monocytes % 6.5 Eosinophils % 0.6 Basophils % 0.3 Nucleated Red Blood Cells % 0.0 Immature Granulocytes # 0.050 H Neutrophils # 4.4 Lymphocytes # 2.2 Monocytes # 0.5 Eosinophils # 0.0 Basophils # 0.0 Nucleated Red Blood Cells # 0.0 Sodium Level 140 Potassium Level 3.7 Chloride Level 107 Carbon Dioxide Level 28 Anion Gap 5 Blood Urea Nitrogen 4 L Creatinine 0.51 Est Glomerular Filtrat Rate mL/min > 60 Glucose Level 114 Hemoglobin A1c 5.4 Calcium Level 8.6 Magnesium Level 1.9 Total Bilirubin 0.3 Direct Bilirubin 0.00 Indirect Bilirubin 0.3 Aspartate Amino Transf (AST/SGOT) 13 L Alanine Aminotransferase (ALT/SGPT) 16 Alkaline Phosphatase 41 L Total Protein 6.2 # Albumin 3.3 Globulin 2.90 Albumin/Globulin Ratio 1.13 Triglycerides Level 84 Cholesterol Level 136 LDL Cholesterol, Calculated 79 HDL Cholesterol 40 Cholesterol/HDL Ratio 3.4 Thyroid Stimulating Hormone (TSH) 2.080 Exam/Review of Systems Exam Vitals Vital Signs Date Temp Pulse Resp B/P (MAP) Pulse Ox O2 O2 Flow FiO2 Time Delivery Rate 01/05/19 98.9 87 18 109/53 97 08:02 (71) 01/04/19 Room Air 19:00 Intake and Output 01/04/19 01/04/19 01/05/19 1515:00 23:00 07:00 IntakeIntake Total 1600 ml 620 ml 1590 ml OutputOutput Total 5 ml BalanceBalance 1595 ml 620 ml 1590 ml Results Results 24hrs Laboratory Tests Test 01/05/19 04:26 White Blood Count 7.2 # Red Blood Count 3.96 L Hemoglobin 11.4 L Hematocrit 34.7 L Mean Corpuscular Volume 87.6 Mean Corpuscular Hemoglobin 28.8 L Mean Corpuscular Hemoglobin Concent 32.9 Red Cell Distribution Width 12.1 Platelet Count 230 Mean Platelet Volume 11.0 H Immature Granulocytes % 0.700 H Neutrophils % 61.6 Lymphocytes % 30.3 Monocytes % 6.5 Eosinophils % 0.6 Basophils % 0.3 Nucleated Red Blood Cells % 0.0 Immature Granulocytes # 0.050 H Neutrophils # 4.4 Lymphocytes # 2.2 Monocytes # 0.5 Eosinophils # 0.0 Basophils # 0.0 Nucleated Red Blood Cells # 0.0 Sodium Level 140 Potassium Level 3.7 Chloride Level 107 Carbon Dioxide Level 28 Anion Gap 5 Blood Urea Nitrogen 4 L Creatinine 0.51 Est Glomerular Filtrat Rate mL/min > 60 Glucose Level 114 Hemoglobin A1c 5.4 Calcium Level 8.6 Magnesium Level 1.9 Total Bilirubin 0.3 Direct Bilirubin 0.00 Indirect Bilirubin 0.3 Aspartate Amino Transf (AST/SGOT) 13 L Alanine Aminotransferase (ALT/SGPT) 16 Alkaline Phosphatase 41 L Total Protein 6.2 # Albumin 3.3 Globulin 2.90 Albumin/Globulin Ratio 1.13 Triglycerides Level 84 Cholesterol Level 136 LDL Cholesterol, Calculated 79 HDL Cholesterol 40 Cholesterol/HDL Ratio 3.4 Thyroid Stimulating Hormone (TSH) 2.080 Medications Medication Current Medications Morphine Sulfate (morphine) 4 mg Q4 PRN IV pain Last administered on 01/05/19at 00:00; Admin Dose 4 MG; Start 01/04/19 at 06:00 IV Flush (NS 3 ml) 3 ml PER PROTOCOL IV ; Start 01/04/19 at 08:00 Morphine Sulfate (morphine) 2 mg Q4H PRN IV .SEVERE PAIN 7-10; Start 01/04/19 at 08:00 Docusate Sodium (Colace) 100 mg Q12H PRN PO .CONSTIPATION; Start 01/04/19 at 08:00 Bisacodyl (Dulcolax) 5 mg DAILY PRN PO .CONSTIPATION; Start 01/04/19 at 08:00 Piperacillin Sod/ Tazobactam Sod 100 ml @ 200 mls/hr Q6 IVPB Last administered on 01/05/19at 11:34; Admin Dose 200 MLS/HR; Start 01/04/19 at 12:00 Ondansetron HCl (Zofran Inj) 4 mg Q6H PRN IV NAUSEA AND/OR VOMITING; Start 01/04/19 at 17:00 Ketorolac Tromethamine (Toradol) 30 mg Q6H PRN IV PAIN; Start 01/04/19 at 17:00; Stop 01/07/19 at 16:59 Hydromorphone HCl (Dilaudid) 0.5 mg Q4H PRN IV BREAKTHROUGH PAIN; Start 01/04/19 at 17:00 Acetaminophen (Tylenol Tab) 650 mg Q6H PRN PO MILD PAIN(1-3)OR ELEVATED TEMP; Start 01/04/19 at 17:00 Ibuprofen (Motrin) 600 mg Q6H PRN PO PAIN LEVEL 1-5; Start 01/04/19 at 17:00 Acetaminophen/ Hydrocodone Bitart ([place] (5/325)) 1 tab Q6H PRN PO PAIN LEVEL 6-10 Last administered on 01/05/19at 11:35; Admin Dose 1 TAB; Start 01/04/19 at 17:00 Diphenhydramine HCl (Benadryl) 25 mg Q6H PRN IV PRURITUS; Start 01/04/19 at 17:00 Potassium Chloride/Dextrose/ Sod Cl 1,000 ml @ 100 mls/hr Q10H IV Last administered on 01/05/19at 05:26; Admin Dose 100 MLS/HR; Start 01/04/19 at 16:35 TRAVIS FULLER NP Jan 05, 2019 12:00
[2019-01-05] MEDS ORDERED: HYDR-4011 PO (14:15)
[2019-01-05] MEDS ORDERED: AMOX1TAB10 PO (14:15)
[2019-01-05] MEDS ORDERED: DOCU-144 PO (14:15)
--- NOTE | 2019-01-05 14:17 | PDOCDIS ---
Discharge Instructions CONDITION [id number] Patient Condition: [id number] Stable HOME CARE INSTRUCTIONS: [id number] Your diet recommendation is: [id number] low Calorie diet FOLLOW UP/APPOINTMENTS Follow-up Plan 1. Follow-up with in 1 week [id number] [place] [address] Office follow up with primary care physician in 1 week Post operative Instructions *Do not lift anything more than 10 pounds for 4 weeks *Do not swim or take hot tub bath for 2weeks *Remove dressing and May shower-Use mild soap around site and pat dry *If you notice any oozing, bleeding or other drainage or having fever or chills from site please contact Surgeon's office-If unable to get office, you may go to nearest emergency room TRAVIS FULLER NP Jan 05, 2019 14:17
[2019-01-05 14:37] VITALS: BP 97/57; PULSE 97; RESP 18
--- NOTE | 2019-01-06 08:34 | DS ---
Date/Time of Note Date/Time of Note DATE: 01/06/19 TIME: 08:32 Discharge Summary Admission/Discharge Info Admit Date/Time Jan 04, 2019 at 07:25 Discharge Date/Time Jan 05, 2019 at 18:30 Discharge Diagnosis 1. Acute appendicitis with localized peritonitis. Status post laparoscopic appendectomy 01/04/2019. 2. Obesity with a BMI 30.3. Patient Condition: Stable Consults , surgeon Procedures 06/06/2019. CT abdomen and pelvis. IMPRESSION: 1. Early acute appendicitis. No definite free air or abscess. 2. Hepatomegaly and incompletely characterized 3.4 cm hypodense liver lesion which is not likely a cyst. This could represent a hemangioma or other benign lesion but follow-up MRI with Eovist contrast is suggested. Results were called to Orly Blair at 01/04/2019 5:52:09 AM 01/04/2019. Operation/Procedure Performed Laparoscopic appendectomy Hx of Present Illness Is a 33-year-old female with no significant past medical history, came to the emergency room with sudden onset of right lower quadrant abdominal pain started yesterday. Patient denied any fever, chills, diarrhea, nausea, vomiting, melena, hematochezia. She also denied chest pain, dizziness, shortness of breath, palpitation, loss of consciousness, vision changes, speech difficulties or others. In the emergency room, initial CBC, BMP grossly unremarkable. Urine analysis negative for any infection. A CT abdomen and pelvis was concerning for early acute appendicitis. There was also evidence of hepatomegaly with 3.4 cm hypodense liver lesion. Patient was admitted for acute appendicitis based on clinical symptoms and imaging findings. She was given Zosyn in the emergency room and a surgery consult was called from the emergency room. Hospital Course This is a 33-year-old female with no significant past medical history admitted with right lower quadrant abdominal pain found to have acute appendicitis. Patient underwent laparoscopic appendectomy on 01/04/2019. Patient did well postoperatively. She was continued on antibiotic secondary to localized peritonitis. Patient did not have any leukocytosis or fevers postoperatively. She was able to tolerate diet and activities well. At this time, patient is cleared for outpatient follow-up from surgery standpoint. Patient was given Augmentin to complete the antibiotic course and to follow-up with her surgeon in 1 week. Patient was also counseled on weight reduction for underlying obesity. Her A1c and lipid panel was within normal limits. Patient verbalized understanding. Approximately 60 m spent on coordinating the discharge on this patient. Patient was seen in collaboration with Dr. Mandeep Zhang Active Scripts Docusate Sodium* (Colace*) 100 Mg Capsule, 100 MG PO BID, #60 CAP Prov:TRAVIS FULLER NP 01/05/19 Hydrocodone/Acetaminophen ([place] 5-325 Tablet) 1 Each Tablet, 1 EACH PO Q6H, #15 TAB Prov:TRAVIS FULLER NP 01/05/19 Amoxicillin/Potassium Clav (Amox-Clav 875-125 mg Tablet) 875-125 mg Tab, 1 TAB PO BID, #20 TAB Prov:TRAVIS FULLER NP 01/05/19 Discontinued Reported Medications Ferrous Gluconate (Iron) 256 Mg Tablet, 256 MG PO DAILY, TAB 11/21/17 Vits #93-Iron Fum-FA ( Formula) 1 Each Tablet, 1 TAB PO DAILY, TAB 11/21/17 Discontinued Scripts Ciprofloxacin Hcl* (Ciprofloxacin Hcl*) 500 Mg Tablet, 500 MG PO BID for 7 Days, TAB Prov:CELESTINO MOON PA-C 07/29/18 Ibuprofen* (Motrin*) 600 Mg Tab, 600 MG PO Q6, #30 TAB Prov:COLTEN ZABALA PA-C 04/11/18 Cephalexin* (Keflex*) 500 Mg Capsule, 500 MG PO QID for 7 Days, CAP Prov:COLTEN ZABALA PA-C 04/11/18 Follow-up Plan 1. Follow-up with in 1 week [id number] [facility]. [address] [place] [address] Office follow up with primary care physician in 1 week Post operative Instructions *Do not lift anything more than 10 pounds for 4 weeks *Do not swim or take hot tub bath for 2weeks *Remove dressing and May shower-Use mild soap around site and pat dry *If you notice any oozing, bleeding or other drainage or having fever or chills from site please contact Surgeon's office-If unable to get office, you may go to nearest emergency room Primary Care Provider Care Physician No Primary TRAVIS FULLER NP Jan 06, 2019 08:34
== END 2019-01-05 18:30 | disposition home or self-care (01) | DRG 343 ==
LOC: FTE 21:40 → UNDOADMIN 01-04 04:46 → MS1 01-04 04:46 → CANRESERV 01-04 07:34 → MS1 01-04 17:17
PROVIDERS: ADMIT Family Medicine; ATTEND Family Medicine
PROC: 0DTJ4ZZ Resection of Appendix, Percutaneous Endoscopic Approach (ICD-10-PCS; principal; 2019-01-04 15:00)
DX: K35.30 Acute appendicitis with localized peritonitis, without perforation or gangrene (principal); E66.9 Obesity, unspecified; Z68.30 Body mass index [BMI] 30.0-30.9, adult
CPT/HCPCS: 74177; 80053; 80061; 81001; 81025; 83036; 83690; 83735; 84443; 85025; 87086; 88304; 96361; 96374; 96375; J0690; J1170; J2270; J2405; J2543; J2710; J2795; J3010; J3480; J7030; J7120; Q9967